=== PATIENT | female | born 1975 | race American Indian/Alaskan Native ===

== ENCOUNTER 2017-02-07 12:12 | Outpatient (CLI) | payer OTHER ==
--- NOTE | 2017-02-09 14:12 | Mammography Report ---
BILATERAL DIGITAL SCREENING MAMMOGRAM with CAD : 02/07/17 12:12:00 CLINICAL: Routine screening. COMPARISON:01/08/16 FINDINGS: The breasts are heterogeneously dense, which may obscure small masses. No mass, architectural distortion or suspicious calcifications. IMPRESSION: No mammographic evidence of malignancy. BI-RADS CATEGORY: 2 -- Benign RECOMMENDATION: Routine mammographic screening in one year. COMMENT: Patient follow-up letters are generated by our Parental [employer] application.
== END 2017-02-07 12:13 | disposition home or self-care (01) ==
LOC: SPVIMAG 12:12
PROVIDERS: ATTEND Internal Medicine
DX: Z12.31 Encounter for screening mammogram for malignant neoplasm of breast (principal)
CPT/HCPCS: 77067; G0202

== ENCOUNTER 2017-09-25 07:23 | Outpatient (CLI) | payer OTHER ==
--- NOTE | 2017-09-25 09:27 | Magnetic Resonance Report ---
MRI UPPER EXTREMITY JOINT LEFT WITHOUT CONTRAST HISTORY: Left shoulder impingement TECHNIQUE: Multisequence, multiplanar MRI without contrast. COMPARISON: None. FINDINGS: There is thickening and increased intrinsic signal of the distal supraspinatus tendon. There is certainly a moderate tendinosis. I believe I see a small full thickness defect in the distal supraspinatus tendon measuring less than 5 mm. The infraspinatus, teres minor and subscapularis tendons are within normal limits. The biceps tendon and its anchor upon the superior labrum are within normal limits. No labral defect is appreciated. 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 joint. A small acromial spur is identified. The remaining bone marrow signal is within normal limits. No evidence for fracture or bone lesion. A small joint effusion and small fluid in the subdeltoid bursa are noted. IMPRESSION: Small full thickness tear in the distal supraspinatus tendon. There are [id number] hypertrophic changes at the a.c. joint and a small acromial spur but no definite findings of impingement. Small joint effusion and bursal fluid.
== END 2017-09-25 07:24 | disposition home or self-care (01) ==
LOC: MRI 07:23
PROVIDERS: ATTEND Orthopaedic Surgery
DX: M75.42 Impingement syndrome of left shoulder (principal); M19.012 Primary osteoarthritis, left shoulder

== ENCOUNTER 2021-02-12 18:24 | Emergency (ER) | payer BC, OTHER ==
--- NOTE | 2021-02-12 19:45 | Event Note ---
ED Screening Note Date of service: 02/12/21 Time: 19:43 ED Screening Note: 5-year-old -[place] female with no medical history who presents for 1 week stent of chest pain with shortness of breath. States seen by unattended ground sensor specialist today. States positive D-dimer D-dimer result today with cardiology was 979, advised to report to ED should chest pain to stay. Rates chest pain as 4 out of 10 sharp achy radiating from front to back there is no nausea, vomiting, dizziness, lightheadedness headedness. Patient denies smoking there is been no suspicious travel no history of asthma bronchitis or PE. Patient is postmenopausal. Denies other risk factor. Rates symptoms at 4/5 at this time. However patient denies exacerbating or relieving factors. This initial assessment/diagnostic orders/clinical plan/treatment(s) is/are subject to change based on patients health status, clinical progression and re- assessment by fellow clinical providers in the ED. Further treatment and workup at subsequent clinical providers discretion. Patient/guardian urged not to elope from the ED as their condition may be serious if not clinically assessed and managed. Initial orders include: ekg, trop, cmp, cbc, d-dimer, iv,
--- NOTE | 2021-02-12 20:06 | XRay Report ---
CHEST 2 VIEWS INDICATION: chest pain sob. COMPARISON: None FINDINGS: Support devices: None. Heart: Within normal limits. Lungs/pleura: No acute air space or interstitial disease. No pneumothorax. Additional findings: None. IMPRESSION: No acute findings. Signer Name: Ernesto Huber Jr, MD Signed: 02/12/2021 8:02 PM Workstation Name: [id number]
[2021-02-12 20:30] LABS: Alanine Aminotransferase 16 units/L (7-56); Albumin 4.7 g/dL (3.9-5); BUN/Creatinine Ratio 18; Blood Urea Nitrogen 14 mg/dL (7-17); Calcium 10.4 mg/dL (8.4-10.2); Hemolysis Index 8
[2021-02-12 20:34] LABS: Basophils # (Auto) 0.1 K/mm3 (0.0-0.1); Eosinophils # (Auto) 0.1 K/mm3 (0.0-0.4); Eosinophils % (Auto) 1.8 % (0.0-4.3); Hematocrit 39.5 % (30.3-42.9); Hemoglobin 12.2 gm/dl (10.1-14.3); Lymphocytes # (Auto) 1.5 K/mm3 (1.2-5.4); Lymphocytes % (Auto) 23.2 % (13.4-35.0); Mean Corpuscular HGB Conc 31 % (30-34); Mean Corpuscular Volume 91 fl (79-97); Monocytes # (Auto) 0.6 K/mm3 (0.0-0.8); Monocytes % (Auto) 9.5 % (0.0-7.3); Platelet Count 247 K/mm3 (140-440); Red Blood Count 4.36 M/mm3 (3.65-5.03); Red Cell Distribution Width 13.8 % (13.2-15.2)
--- NOTE | 2021-02-12 20:43 | Emergency Department Report ---
ED Chest Pain HPI - General Chief Complaint: Chest Pain Stated Complaint: CHEST PAIN Time Seen by Provider: 02/12/21 20:27 Source: patient Mode of arrival: Ambulatory Limitations: No Limitations - History of Present Illness Initial Comments: 45-year-old female, history of mitral valve prolapse, presents to ED with chest pain x4 days. Patient reports sharp left-sided pain, worse with inspiration. States pain has been constant for the last 4 days but not as bad as it was when it initially began. Patient reported some mild shortness of breath 4 days ago, but states that has resolved. She denies any cough, fever, leg pain or swelling. Patient went to her paper folder's office on yesterday because of her chest pain. D-dimer was done which came back elevated. Doctor's office was unable to schedule an outpatient CTA, so they recommend that she come to the ED for evaluation. MD Complaint: chest pain -: days(s) (4) Onset: during rest Pain Location: left chest Pain Radiation: none Severity: moderate Severity scale (0 -10): 5 Quality: sharp Consistency: constant Improves With: nothing Worsens With: inspiration re: dyspnea. denies: nausea, vomting, diaphoresis Other Symptoms: denies: cough, fever, syncope, leg swelling Treatments Prior to Arrival: none - Related Data Home Medications Medication Instructions Recorded Confirmed Last Taken Ibuprofen [Motrin 800 MG tab] 800 mg PO PRN PRN 03/08/15 03/08/15 1 Week Ago ~03/01/15 Allergies Allergy/AdvReac Type Severity Reaction Status Date / Time levofloxacin [From Levaquin] Allergy DIFFICULTY Verified 02/12/21 18:42 IN BREATHING Heart Score - HEART Score History: Slightly suspicious EKG: Non-specific Age: 45-65 Risk factors: No known risk factors Troponin: < normal limit HEART Score: 2 - EKG Read Time Time EKG Completed: 18:32 EKG Read Time: 18:35 ED Review of Systems ROS: Stated complaint: CHEST PAIN Other details as noted in HPI Comment: All other systems reviewed and negative Constitutional: denies: chills, fever Respiratory: shortness of breath. denies: cough Cardiovascular: chest pain Musculoskeletal: other (Denies leg pain or swelling) ED Past Medical Hx - Past Medical History Hx Hypertension: No Hx Heart Attack/AMI: No Hx Diabetes: No Hx Renal Disease: No Hx Asthma: No Hx COPD: No - Surgical History Hx Coronary Stent: No Hx Pacemaker: No - Social History Smoking Status: Never Smoker - Medications Home Medications: Home Medications Medication Instructions Recorded Confirmed Last Taken Type Ibuprofen [Motrin 800 MG tab] 800 mg PO PRN PRN 03/08/15 03/08/15 1 Week Ago History ~03/01/15 ED Physical Exam - General Limitations: No Limitations General appearance: alert, in no apparent distress - Head Head exam: Present: atraumatic, normocephalic - Eye Eye exam: Present: normal appearance, EOMI - ENT ENT exam: Present: mucous membranes moist - Neck Neck exam: Present: normal inspection - Respiratory Respiratory exam: Present: normal lung sounds bilaterally. Absent: respiratory distress - Cardiovascular Cardiovascular Exam: Present: regular rate, normal rhythm - GI/Abdominal GI/Abdominal exam: Present: soft. Absent: distended, tenderness - Extremities Exam Extremities exam: Present: normal inspection. Absent: pedal edema, calf tenderness - Neurological Exam Neurological exam: Present: alert, oriented X3 - Psychiatric Psychiatric exam: Present: normal affect, normal mood - Skin Skin exam: Present: warm, dry, intact, normal color ED Course Vital Signs 02/12/21 02/12/21 02/12/21 18:50 18:52 21:15 Temperature 98.4 F 98.4 F Pulse Rate 100 H 89 Respiratory 16 16 15 Rate Blood Pressure 127/81 Blood Pressure 123/90 [Left] O2 Sat by Pulse 98 100 Oximetry 02/12/21 02/12/21 02/12/21 21:31 21:45 22:07 Temperature Pulse Rate 88 92 H 97 H Respiratory 21 22 13 Rate Blood Pressure 140/80 126/94 Blood Pressure [Left] O2 Sat by Pulse 99 99 100 Oximetry 02/12/21 02/12/21 02/12/21 22:17 22:31 23:10 Temperature Pulse Rate 87 87 89 Respiratory 18 22 18 Rate Blood Pressure Blood Pressure 138/88 [Left] O2 Sat by Pulse 100 100 100 Oximetry ED Medical Decision Making - Lab Data Result diagrams: 02/12/21 19:47 02/12/21 19:47 - EKG Data -: EKG Interpreted by Wi EKG shows normal: sinus rhythm, axis, intervals, QRS complexes Rate: tachycardia (rate 111) - EKG Data Interpretation: nonspecific ST-T wave ivan - Radiology Data Radiology results: report reviewed, image reviewed - Medical Decision Making 45-year-old female presents to ED with pleuritic chest pain x4 days. Patient elevated D-dimer and her paper folder office. D-dimer is normal here in the ED. CTA was obtained, which is negative for PE. EKG unremarkable. Troponin is negative. Patient will not require admission at this time. Patient is comfortable with discharge home. States she will take Aleve at home, that she does not need a prescription. Outpatient follow-up advised, return precautions given. - Differential Diagnosis PE, pneumonia, pleurisy Critical care attestation.: If time is entered above; I have spent that time in minutes in the direct care of this critically ill patient, excluding procedure time. ED Disposition Clinical Impression: Chest pain Disposition: 01 HOME / SELF CARE / HOMELESS Is pt being admited?: No Condition: Stable Instructions: Nonspecific Chest Pain, Adult, Pleurisy, [id number] Referrals: CARLENE KAUR MD [Primary Care Provider] - 3-5 Days Time of Disposition: 22:54
--- NOTE | 2021-02-12 22:31 | Cat Scan Report ---
CTA CHEST WITH CONTRAST INDICATION / CLINICAL INFORMATION: Patient complains of chest pain. TECHNIQUE: Axial CT images were obtained through the chest after injection of IV contrast. 3 plane FL P and/or 3D reconstructions were produced. All CT scans at this location are performed using CT dose reduction for ALARA by means of automated exposure control. COMPARISON: CTA heart 03/08/2015 FINDINGS: PULMONARY ARTERIES: No pulmonary emboli. 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 HEART: No significant abnormality. CORONARY ARTERY CALCIFICATION: None. MEDIASTINUM / JUAN PABLO: No significant abnormality. PLEURA: No pleural effusion. No pneumothorax. LUNGS: No acute air space or interstitial disease. ADDITIONAL FINDINGS: None. UPPER ABDOMEN: No acute findings. SKELETAL STRUCTURES: No significant osseous abnormality. IMPRESSION: 1. No CT evidence for pulmonary embolism. 2. No acute findings. 3. 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 Please refer to CTA heart from 015 for more detailed information. Signer Name: Dale Chen MD Signed: 02/12/2021 10:27 PM Workstation Name: [id number]
[2021-02-12 23:12] VITALS: BP 138/88
--- NOTE | 2021-02-13 17:41 | Electrocardiograph Report ---
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
== END 2021-02-12 23:10 | disposition home or self-care (01) ==
LOC: ED 18:24
DX: R07.89 Other chest pain (principal)
CPT/HCPCS: 36415; 71046; 71275; 80053; 84484; 84703; 85025; 85379; 93005; 99284; Q9967

== ENCOUNTER 2021-03-04 08:20 | Outpatient (CLI) | payer BC ==
--- NOTE | 2021-03-04 09:49 | Mammography Report ---
DIGITAL SCREENING MAMMOGRAM WITH CAD, 03/04/2021 CLINICAL INFORMATION / INDICATION: Routine screening mammography. TECHNIQUE: Digital bilateral 2D mammography was obtained in the craniocaudal and mediolateral obliqu e projections. This examination was interpreted with the benefit of Computer-Aided Detection analysis . COMPARISON: 02/07/2017, 01/08/2016 FINDINGS: Breast Density: The breasts are heterogeneously dense, which may obscure small masses. No dominant mass, suspicious calcifications, or architectural distortion in either breast. IMPRESSION: No mammographic evidence of malignancy. Follow up recommendation: Routine yearly BI-RADS Category 1: Negative. A "normal" or negative report should not discourage follow up or biopsy of a clinically significant f inding. A written summary of these findings will be mailed to the patient. The patient will be entered into a mammography reporting system which will generate a reminder letter for the patient's next appointmen t at the appropriate interval. The [employer] recommends yearly mammograms starting at age 40 and continuing as l jose martin as a woman is in good health. Breast MRI is recommended for women with an approximate 20-25% or greater lifetime risk of breast cancer, including women with a strong family history of breast or ova destiny cancer or who have been treated for Hodgkin's disease. Signer Name: Lincoln Carolina MD Signed: 03/04/2021 9:44 AM Workstation Name: [id number]
== END 2021-03-04 08:21 | disposition home or self-care (01) ==
LOC: SPVWC 08:20
PROVIDERS: ATTEND Clinical Nurse Specialist Adult Health
DX: Z12.31 Encounter for screening mammogram for malignant neoplasm of breast (principal)
CPT/HCPCS: 77067

== ENCOUNTER 2021-03-11 07:20 | Outpatient (CLI) | payer BC ==
[2021-03-11 08:22] LABS: Blood Urea Nitrogen 12 mg/dL (7-17)
[2021-03-11] MEDS ORDERED: METOPROLOL TARTRATE 50 MG TAB PO ONE ×2 (08:30→10:30)
[2021-03-11] MEDS ORDERED: NITROGLYCERIN 0.4 MG TAB SUBL SL ONE (09:00)
[2021-03-11] MEDS ORDERED: METOPROLOL TARTRATE 5 MG/5 ML INJ IV ONE (09:00)
[2021-03-11] MEDS ORDERED: ATROPINE 0.1% (1 MG/10 ML) CARDIAC SYRINGE ONE (10:23)
[2021-03-11] MEDS ORDERED: SODIUM CHLORIDE 0.9% 500 ML 0 ML ONE (10:24)
[2021-03-11 10:55] VITALS: BP 127/84
--- NOTE | 2021-03-11 11:35 | Cat Scan Report ---
CTA HEART WITH AND WITHOUT CONTRAST 03/11/2021 9:54 AM TECHNIQUE: Routine ECG-gated coronary CT angiography performed on a 64-channel system. 3-D/MIP reform ats were postprocessed. Note that this exam targets the heart and the entire chest was not imaged. CONTRAST: 100 ml Omnipaque 300 HISTORY: Chest Pain COMPARISONS: 03/08/2015. 02/12/2021. PREMEDICATION: See nurse's notes. FINDINGS: CARDIAC/CORONARY FINDINGS: Please see cardiology report in this particular case. EXTRACARDIAC/EXTRACORONARY FINDINGS: VISUALIZED LUNGS: unremarkable VISUALIZED MEDIASTINUM: Right-sided aortic arch is again noted although the most superior portion of the aortic arch is not included. No abnormal dilatation or dissection. VISUALIZED CHEST WALL: unremarkable VISUALIZED UPPER ABDOMEN: unremarkable . IMPRESSION 1. Please see cardiology dictation in this particular case for the cardiac/coronary findings. 2. Right-sided aortic arch. 3. Clear lung bases. DISCLAIMER: This is a combined radiology and cardiology interpretation. Cardiology is solely responsible for rep orting of cardiac and coronary findings. Radiology is solely responsible for reporting of the extrac ardiac and extracoronary findings. Signer Name: Ernesto Huber Jr, MD Signed: 03/11/2021 11:31 AM Workstation Name: [id number]
--- NOTE | 2021-03-12 08:53 | CT Calcium Scoring Report ---
Coronary Calcium Score Date of service: 03/12/21 Procedure: High-resolution computed tomographic imaging of the chest was performed on03/11/21 with particular attention paid to the coronary arteries. Images from the examination were analyzed for the presence and extent of coronary artery calcification, using coronary calcium quantification software. The patient tolerated the procedure well and there were no complications. The results of the coronary calcification analysis are provided below. The patient scores are compared with published data related to scores for people of a similar age and the same gender. - Findings Total Agatson Score: 0 Findings: Cardiac CTA Indication: chest pain Informed consent obtained Procedure: The patient was brought to the cardiac ct laboratory at [facility] in stable condition after a 4 hour fast. Heart rate was regulated by beta blockade. Sublingual ngt was administered. After data acquisition and reconstruction, the images were processed and reviewed on the computer workstation. Multiple phases of the cardiac cycle were assessed for image interpretation. Volume rendered images, multiplanar reformated images, and maximum intensity projections images were generated and reviewed A coronary calcium score was performed via the Agatston method. A separate radiology assessment of the non cardiac structures in the field of view will be provided. Superior vena cava in the field of view appears normal Inferior vena cava in the filed of view appears normal Ascending aorta in the field of view appears normal Descending aorta in the field of view appears normal Pulmonary artery in the filed of view appears normal Pulmonary veins enter the left atrium appropriately Left ventricle appears normal Right Ventricle appears normal Left atrium appears normal Left atrial appendage appears normal Right atrium appears normal Interventricular septum appears normal Interatrial septum appears normal Aortic valve appears normal Mitral Valve appears normal Intracardiac mass: none Pericardial effusion: none Coronary Angiography: Dominance: right Origins: left main coronary artery arises from non coronary cusp (normal variant). right coronary artery arises from the right coronary cusp Left main: normal Left anterior descending coronary artery and diagonal branches: normal Circumflex coronary artery and obtuse marginal branches: normal Right coronary artery: normal the procedure was tolerated well without apparent complications
== END 2021-03-11 11:10 | disposition home or self-care (01) ==
LOC: CATHLABREC 07:20
PROVIDERS: ATTEND Internal Medicine Cardiovascular Disease
DX: R07.89 Other chest pain (principal); Z79.899 Other long term (current) drug therapy; Z88.8 Allergy status to other drugs, medicaments and biological substances
CPT/HCPCS: 36415; 75574; 82565; 84520; J9280; Q9967; J0461; J7040